=== PATIENT | female | born 1950 | race Caucasian/White ===

== ENCOUNTER → 2018-03-27 | Outpatient (CLI) | payer MEDICARE, OTHER | END | disposition home or self-care (01) | LOC: KCIC DEXA 12:44 | DX: Z12.31 Encounter for screening mammogram for malignant neoplasm of breast (principal); Z13.820 Encounter for screening for osteoporosis; R29.890 Loss of height; Z90.710 Acquired absence of both cervix and uterus; Z78.0 Asymptomatic menopausal state | CPT/HCPCS: 77063; 77067; 77080 ==

== ENCOUNTER → 2018-09-25 | Outpatient (CLI) | payer MEDICARE, OTHER ==
--- NOTE | 2018-09-25 13:29 | KCIC ---
MRI Brain without contrast History: Dizziness after extension of neck, syncope, recent head pressure Technique: Multiplanar, multisequential noncontrast MR imaging was performed of the brain. Comparison: None Findings: There is no evidence of recent infarct or cytotoxic edema. Ventricular size is within normal limits. There is mild prominence of the supratentorial subarachnoid spaces greater near the vertex, may be due to mild involutional change. There is no significant midline shift, intraaxial mass effect, or focal abnormal extra-axial fluid collection. There is scattered minimal T2 and FLAIR hyperintense signal of the bifrontal deep white matter. There are some small foci of FLAIR hypertense signal of the sara although not quite as prominent on the T2 sequence. There is no significant hemosiderin deposition of the brain parenchyma. There is preservation of the major intracranial flow-voids at the skull base. There is minimal patchy fluid and thickening of the right mastoid air cells inferiorly.The cerebellar tonsils are normal in location. There is no significant abnormality of the pineal gland or pituitary gland. There is mild bilateral ethmoid air cell and maxillary sinus mucosal thickening, also more confluent mucosal thickening or mucous retention cyst inferior left maxillary sinus, largest about 2 cm. There is preserved marrow signal of the clivus. Impression: 1. There is minimal T2 and FLAIR hyperintense signal of the bifrontal deep white matter, minimally of the sara. Findings are nonspecific. White matter changes can be seen in patients with migraine headaches if corresponding history. Sequela of chronic microvascular ischemic disease would be a consideration especially if risk factors such as hypertension or diabetes. Pattern is not particularly suggestive of an inflammatory demyelinating disease. 2. There is paranasal sinus mucosal thickening as stated, also left maxillary sinus mucous retention cysts. There is minimal fluid in the right mastoid air cells. Electronically signed by: Robin Moore MD (09/25/2018 1:24 PM) [id number]
== END | disposition home or self-care (01) ==
LOC: KCIC MRI 11:56
PROVIDERS: ATTEND Nurse Practitioner Family
DX: J34.1 Cyst and mucocele of nose and nasal sinus (principal); R90.82 White matter disease, unspecified
CPT/HCPCS: 70551